=== PATIENT | female | born 1990 | race Caucasian/White ===

== ENCOUNTER 2016-06-22 22:31 | Emergency (ER) | payer OTHER ==
[~2016-06-22] VITALS: Ht 162.6 cm; Wt 68.0 kg
[~2016-06-22 22:31] MED LIST: PRENATAL1 TA2 PO; TEGRETOL-XR200 MG PO; TEGRETOL-XR400 MG PO; TOPAMAX50 MG PO
[2016-06-22 22:44] VITALS: BP 145/77
--- NOTE | 2016-06-22 22:55 | NUR ---
AMBULATED TO ER BED 2
--- NOTE | 2016-06-22 23:12 | NUR ---
PT C/O HAVING 4 SEIZURES SINCE 1900 TODAY WHILE IN BED. NO LOC. HX: SEIZURES, PT DENIES N/V/D; SKIN IS PINK/WARM/DRY; AAOX4 WITH EVEN AND STEADY GAIT; LUNGS CLEAR BL; HR EVEN AND REGULAR; PT DENIES ANY FEVER, CP, SOB, OR COUGH AT THIS TIME; PATIENT STATES PAIN OF 0/10 AT THIS TIME; VSS; PATIENT POSITIONED FOR COMFORT; HOB ELEVATED; BEDRAILS UP X2, SEIZURE PRECAUTIONS, PADS ON BEDSIDE; BED DOWN. ER MD MADE AWARE OF PT STATUS.
--- NOTE | 2016-06-22 23:32 | NUR ---
AT BEDSIDE. LABS DRAWN.
[2016-06-23] MEDS ORDERED: carBAMazepine 200 MG TAB PO ONE ×2 (00:10→00:15)
--- NOTE | 2016-06-23 00:28 | NUR ---
ORDERED MEDICATION WAS GIVEN. PT TOLERATED MEDS WELL.
[2016-06-23 00:34] VITALS: BP 114/72
--- NOTE | 2016-06-23 00:41 | NUR ---
Patient discharged with v/s stable. Written and verbal after care instructions given and explained. Patient alert, oriented and verbalized understanding of instructions. Ambulatory with steady gait. All questions addressed prior to discharge. ID band removed. Patient advised to follow up with PMD. Rx of TEGRETOL given. Patient educated on indication of medication including possible reaction and side effects. Opportunity to ask questions provided and answered.
== END 2016-06-23 00:34 | disposition home or self-care (01) ==
LOC: MED 22:37
DX: G40.89 Other seizures (principal); Z88.1 Allergy status to other antibiotic agents; Z88.8 Allergy status to other drugs, medicaments and biological substances

== ENCOUNTER 2016-06-25 23:37 | Emergency (ER) | payer OTHER ==
[~2016-06-25] VITALS: Ht 162.6 cm; Wt 68.0 kg
[2016-06-25 23:43] VITALS: BP 123/77
--- NOTE | 2016-06-25 23:44 | NUR ---
PT ADRIAN ALS. TAKEN TO BED 3
[2016-06-25] MEDS ORDERED: NACL 0.9% 1,000 ML IV ONE (23:50)
--- NOTE | 2016-06-26 00:43 | NUR ---
Dr. Armas evaluating patient at bedside.
--- NOTE | 2016-06-26 00:54 | NUR ---
PATIENT ADRIAN PRESENTS TO ED WITH C/O MULTIPLE SEIZURES AT HOME . PT STATES SHE NEVER REFILLED TEGRETOL PRESCRIPTION BY ERMD FROM LAST VISIT. REPORTS LAST SEIZURE LASTING APPROXIMATELY 15MIN . DENIES N/V/D; SKIN IS PINK/WARM/DRY; AAOX4 WITH EVEN AND STEADY GAIT; LUNGS CLEAR BL; HR EVEN AND REGULAR; PT DENIES ANY FEVER, CP, SOB, OR COUGH AT THIS TIME; PATIENT STATES PAIN OF 0/10 AT THIS TIME; VSS; PATIENT POSITIONED FOR COMFORT; HOB ELEVATED; BEDRAILS UP X2; BED DOWN. ER MD MADE AWARE OF PT STATUS.
--- NOTE | 2016-06-26 02:22 | NUR ---
Patient Tranfers to outside Facility Physician: DR. TOMAS Location: [facility] Patient to be transferred to [facility]. Is being transferred due to HIGHER LEVEL OF CARE. Receiving facility has accepting physician and available space. ER physician has signed transfer form. Patient or responsible republican has agreed to transfer and signed form. Patient belongings inventoried and will be sent with patient. Copy of nursing notes, lab reports, EKG, Physicians Orders and X-rays to be sent with patient. Report called to JANIYA HARMAN at receiving facility. [facility] ambulance service has been called for transfer. ETA is 60MIN.
--- NOTE | 2016-06-26 03:42 | NUR ---
[facility] AT BEDSIDE PREPARING PT FOR TRANSPORT AT THIS TIME
[2016-06-26 03:45] VITALS: BP 140/78
--- NOTE | 2016-06-26 03:45 | NUR ---
TRANSFER OF CARE AT THIS TIME
--- NOTE | 2016-07-02 21:05 | NUR ---
FOR CLARIFICATION ON 06/25/16; 0.9% NSS IV 100 ML/HR STARTED AT 2354 STOP TIME 0345 AM, TOTAL INTAKE 400 ML.
== END 2016-06-26 03:45 | disposition short-term general hospital (02) ==
LOC: MED 23:37
DX: R56.9 Unspecified convulsions (principal); Z88.1 Allergy status to other antibiotic agents; Z88.8 Allergy status to other drugs, medicaments and biological substances
CPT/HCPCS: 36415; 80053; 80156; 80305; 85025; 96360; 96361; 99285; G0480; G0482; J7030

== ENCOUNTER 2016-07-02 21:35 | Emergency (ER) | payer OTHER ==
[~2016-07-02] VITALS: Ht 162.6 cm; Wt 71.7 kg
--- NOTE | 2016-07-02 21:36 | NUR ---
PATIENT BIB ALS TO BED 3.
--- NOTE | 2016-07-02 21:37 | NUR ---
26Y F BIBA FOR SYNCOPE AND FALL AT HOME. PT STATES SHE WAS HOME WITH HER BABY, HAD AN EPISODE OF SYNCOPE AND FELL, HIT HER HEAD ON DOOR WAY ENTRY, AREA OF HEAD APPEARS TO BE RED BUT NO SWELLING OR LACERATION VISIBLE. PT STATES SHE HAS BEEN HAVING NEAR EPISODES OF SYNCOPE FOR 1 WEEK NOW. PT IS TAKING LAMICTAL, TEGRETOL, AND MACROBID CURRENTLY AND HAS BEEN D/C FROM [facility]. PT HAS 20 G IN THE RIGHT AC ESTABLISHED BY EMS ON THE FIELD. HX SEIZURE, AUTISUM. PT DENIES N/V/D; SKIN IS PINK/WARM/DRY; AAOX4 WITH EVEN AND STEADY GAIT; LUNGS CLEAR BL; HR EVEN AND REGULAR; PT DENIES ANY FEVER, CP, SOB, OR COUGH AT THIS TIME; PATIENT STATES PAIN OF 8/10 AT THIS TIME; VSS; PATIENT POSITIONED FOR COMFORT; HOB ELEVATED; BEDRAILS UP X2; BED DOWN. ER MD MADE AWARE OF PT STATUS.
--- NOTE | 2016-07-02 21:38 | NUR ---
SEIZURE PRECAUTIONS IN PLACED, PADDING APPLIED TO BED
[2016-07-02 21:40] VITALS: BP 117/75
--- NOTE | 2016-07-03 00:27 | NUR ---
EPatient being evaluated by physician DR ZAMBRANO at bedside.
[2016-07-03 00:50] VITALS: BP 124/76
--- NOTE | 2016-07-03 00:50 | NUR ---
IV removed, catheter intact and site benign. Applied folded 4x4 gauze and tape to stop bleeding.
--- NOTE | 2016-07-03 00:50 | NUR ---
Patient discharged with v/s stable. Written and verbal after care instructions given and explained. Patient alert, oriented and verbalized understanding of instructions. Ambulatory with steady gait. All questions addressed prior to discharge. ID band removed. Patient advised to follow up with PMD. Rx of CIPRO 500MG given. Patient educated on indication of medication including possible reaction and side effects. Opportunity to ask questions provided and answered.
== END 2016-07-03 00:50 | disposition home or self-care (01) ==
LOC: MED 21:35
DX: N39.0 Urinary tract infection, site not specified (principal); Z90.49 Acquired absence of other specified parts of digestive tract; Z88.1 Allergy status to other antibiotic agents; Z88.8 Allergy status to other drugs, medicaments and biological substances